=== PATIENT | male | born 1970 | race Caucasian/White ===

== ENCOUNTER 2021-07-04 07:00 | Outpatient (RCR) | payer OTHER, SELFPAY | END 2021-12-01 13:43 | disposition home or self-care (01) | LOC: HO.PTWFD 07:00 | PROVIDERS: PCP Internal Medicine; Visit Provider Orthopaedic Surgery Foot and Ankle Surgery | DX: Z98.890 Other specified postprocedural states (principal) | CPT/HCPCS: 97035; 97110; 97116; 97140; 97161; 97535 ==

== ENCOUNTER → 2023-03-04 07:59 | Outpatient (REF) | payer OTHER, SELFPAY ==
--- NOTE | ~2023-03-04 | NM_ITS ---
EXAMINATION: BILIARY TRACT IMAGING STUDY WITH [facility]CK CLINICAL INFORMATION: Right upper quadrant pain, rule out acalculous cholecystitis.. COMPARISON: No previous biliary scan is available for comparison. The report of abdominal ultrasound performed at [facility] dated 09/21/2022 is available, but the images from that study are not available for comparison.. TECHNIQUE: Serial gamma scintillation camera images were obtained over the abdomen for a total observation period of 91 minutes following the intravenous administration of 5 mCi Tc-99m Mebrofenin. FINDINGS: There is good concentration of activity in the liver by 5 minutes post injection. Biliary activity is visualized by 8 minutes. The gallbladder is well visualized by 13 minutes. Small bowel is well visualized by 45 minutes. At 61 minutes post radiopharmaceutical injection, a 30-minute infusion of 1.7 micrograms Sincalide was then begun and an additional 40 minutes of images were obtained. There is good emptying of the gallbladder. By the end of the study there is good clearance of activity from the liver and visualization of diffuse small bowel activity. The calculated gallbladder ejection fraction is 96% (normal gallbladder ejection fraction is greater than 35%). NM/NM hepatobiliary w pharm IMPRESSION: Visualization of the gallbladder is evidence of a patent cystic duct and strong evidence against the diagnosis of acute cholecystitis. The common bile duct is patent. Gallbladder emptying and ejection fraction are normal. Liver function appears normal.
== END ==
LOC: HO.NUCMED 07:59
PROVIDERS: PCP Internal Medicine; Visit Provider Internal Medicine
DX: R10.11 Right upper quadrant pain (principal)
CPT/HCPCS: 78227; A9537; J2805

== ENCOUNTER 2023-04-15 11:09 | Day surgery (SDC) | payer OTHER, SELFPAY ==
[2023-04-09 13:42] VITALS: BMI 24.4
--- NOTE | 2023-04-10 08:23 | HO.ANESPROP2 ---
Documented by User: Tameka Morales NP 04/10/23 08:23 HPI - Anesthesia Eval Consult details Narrative: 52yo M for Upper Endoscopy and Colonoscopy [facility] Past Medical History Medical History IBS (irritable bowel syndrome) Asthma GERD (gastroesophageal reflux disease) Surgical History Surgical History Hx of foot surgery Hx of nasal septoplasty Hx of knee surgery Hx of right inguinal hernia repair History of esophagogastroduodenoscopy (EGD) H/O colonoscopy Social History Advance Directives: No Advance Directives Information Provided: Yes Meds Allergies Allergy/AdvReac Type Severity Reaction Status Date / Time nut - unspecified [nut] Allergy Severe ANAPHYLAXIS Unverified 02/04/20 15:17 tomato [Tomato] Allergy Severe FRESH Unverified 02/04/20 15:17 VEGETABLES-HIVES, ITCHY THROAT aspirin [ASPIRIN] Allergy Unknown HEADACHES Unverified 02/04/20 15:17 latex [LATEX] Allergy Unknown RASH Unverified 02/04/20 15:17 Penicillins [PENICILLINS] Allergy Unknown HIVES Unverified 02/04/20 15:17 lactose [Lactose] AdvReac Intermediate LACTOSE Unverified 02/04/20 15:17 INTOLERANT FRESH FRUIT Allergy Severe HIVES Uncoded 02/04/20 15:17 ITCHY THROAT SEAFOOD Allergy Severe ANAPHYLAXIS Uncoded 02/04/20 15:17 Home Medications Medication Instructions Recorded Confirmed Last Taken Type albuterol sulfate 90 mcg/actuation 2 puff inhalation QID PRN wheezing 04/09/23 04/09/23 Unknown History aerosol inhaler (Ventolin HFA) famotidine 20 mg tablet (Pepcid) 20 mg PO BEDTIME 04/09/23 04/09/23 Unknown History fluticasone propionate 110 2 puff inhalation BID 04/09/23 04/09/23 Unknown History mcg/actuation HFA aerosol inhaler (Flovent HFA) mometasone 50 mcg/actuation nasal 1 spray intranasal DAILY 04/09/23 04/09/23 Unknown History spray Exam Height,Weight and Vital Signs: Height 6 ft 2 in Weight 86.183 kg Assessment and Plan Assessment Anesthesia Assessment: Chart Reviewed Documented by User: Nilesh Wen MD 04/15/23 11:45 PMFSH Past Medical History Medical History IBS (irritable bowel syndrome) Asthma GERD (gastroesophageal reflux disease) Family History Family history of problems with anesthesia: No Surgical History Surgical History Hx of foot surgery Hx of nasal septoplasty Hx of knee surgery Hx of right inguinal hernia repair History of esophagogastroduodenoscopy (EGD) H/O colonoscopy History of Problems with Anesthesia: No Social History Advance Directives: No Advance Directives Information Provided: Yes Meds Allergies Allergy/AdvReac Type Severity Reaction Status Date / Time nut - unspecified [nut] Allergy Severe ANAPHYLAXIS Unverified 02/04/20 15:17 tomato [Tomato] Allergy Severe FRESH Unverified 02/04/20 15:17 VEGETABLES-HIVES, ITCHY THROAT aspirin [ASPIRIN] Allergy Unknown HEADACHES Unverified 02/04/20 15:17 latex [LATEX] Allergy Unknown RASH Unverified 02/04/20 15:17 Penicillins [PENICILLINS] Allergy Unknown HIVES Unverified 02/04/20 15:17 lactose [Lactose] AdvReac Intermediate LACTOSE Unverified 02/04/20 15:17 INTOLERANT FRESH FRUIT Allergy Severe HIVES Uncoded 02/04/20 15:17 ITCHY THROAT SEAFOOD Allergy Severe ANAPHYLAXIS Uncoded 02/04/20 15:17 Home Medications Medication Instructions Recorded Confirmed Last Taken Type albuterol sulfate 90 mcg/actuation 2 puff inhalation QID PRN wheezing 04/09/23 04/09/23 Unknown History aerosol inhaler (Ventolin HFA) famotidine 20 mg tablet (Pepcid) 20 mg PO BEDTIME 04/09/23 04/09/23 Unknown History fluticasone propionate 110 2 puff inhalation BID 04/09/23 04/09/23 Unknown History mcg/actuation HFA aerosol inhaler (Flovent HFA) mometasone 50 mcg/actuation nasal 1 spray intranasal DAILY 04/09/23 04/09/23 Unknown History spray Exam Airway Mallampati Class: II TM Dist: >3cm Neck ROM: Full Loose/Missing/Broken Teeth: No Heart: [id number] Lungs: cta b/l Assessment and Plan Assessment Anesthesia Assessment: Anesthesia Plan Discussed Final Anesthetic Review Family History of Problems with Anesthesia: No History of Problems with Anesthesia: No NPO: Yes ASA Class: II Final Preanesthetic Review: No Changes in Pt Med Stat, Meds/Allgs Chart Reviewed, Consent Obtained/Reviewed and Anes Risks/Benef Reviewed Patient Risk: Intermediate Procedure Risk: Intermediate Assessment/Block/Sedation in SS: Assess/Block/Sedation-SS Anesthetic Plan Anesthetic Plan: MAC: and Agree w/ Assess. and Plan Disposition: Standard PACU
[2023-04-15 11:44] VITALS: BMI 25.0
[2023-04-15] MEDS: Lactated Ringers 1,000 ML 100 ML IVCONT (11:48)
[2023-04-15 11:57] VITALS: BP 129/92; PULSE 88; RESP 18; TEMP 36.6; O2SAT 97
[2023-04-15 13:51] VITALS: BP 120/81; PULSE 91; RESP 16; TEMP 36.1; O2SAT 97
--- NOTE | 2023-04-15 13:53 | PM.OP ---
Brief Operative Note Date of Service: 04/15/23 Pre-op diagnosis: GERD, Abdominal pain, Screening Post-op diagnosis: other (Hiatal hernia, Gastric polyps, Colon polyp) Procedure: EGD with biopsies, Colonoscopy to the cecum and TI with biopsy/removal of polyp Surgeon: Silverio Murphy MD Anesthesia: MAC Was an Post Production Assistant used for this Procedure?: No Estimated blood loss (mL): 2.0 Pathology: other (A. Descending duodenum B. Gastric antrum C. EG Junction at 39cm D. Gastric polyps E. Esophagus 20-25cm F. Colon polyp at 15cm) Condition: stable Disposition: PACU
[2023-04-15 14:08] VITALS: BP 119/80; PULSE 75; RESP 13; TEMP 36.1; O2SAT 97
--- NOTE | 2023-04-15 20:24 | OP_ITS ---
DATE OF SERVICE: 04/15/2023 SURGEON: Silverio Murphy MD INDICATIONS: The patient presents for evaluation of gastroesophageal reflux, personal history of tubular adenoma of the colon, colorectal cancer screening and abdominal pain. Full consent has been obtained from him for this, including risks of bleeding and perforation. PREOPERATIVE DIAGNOSIS: POSTOPERATIVE DIAGNOSIS: PROCEDURE PERFORMED: Esophagogastroduodenoscopy with biopsies, and colonoscopy to the cecum and terminal ileum with biopsy and removal of polyp. ESTIMATED BLOOD LOSS: COMPLICATIONS: ANESTHESIA: Monitored anesthesia care. ASSISTANTS: SPECIMENS: PREOPERATIVE DIAGNOSES: Gastroesophageal reflux, history of adenomatous polyps of the colon, colorectal, colorectal cancer screening, abdominal pain. POSTOPERATIVE DIAGNOSES: Gastroesophageal reflux, history of adenomatous polyps of the colon, colorectal cancer screening, abdominal pain, small hiatal hernia, gastric polyps, rule out celiac disease, rule out gastritis, rule out eosinophilic esophagitis, colon polyp, mild diverticulosis, internal hemorrhoids. DESCRIPTION OF PROCEDURE: The patient was placed in the left lateral decubitus position. The Olympus video gastroscope was passed in the posterior oropharynx and upper esophagus under direct vision. The scope was passed slowly to the distal esophagus. The gastroesophageal junction appeared at 39 cm. There was some very minimal irregularity consistent with reflux but no evidence of any esophagitis nor any definitive Peguero's mucosa. The scope entered into the stomach. There was a small hiatal hernia. The scope was advanced to the pylorus, and the duodenum was cannulated to the descending portion. The duodenum including the bulb appeared normal without mass or ulceration. Biopsies were obtained from the 2nd and 3rd portions of the duodenum. The scope was withdrawn back to the stomach. The gastric antrum and body appeared normal other than some mild areas of erythema but there were no erosions, ulceration, nor mass. There was good peristalsis. Biopsies were obtained from the antrum. The scope was retroflexed visualizing the proximal stomach carefully, which appeared normal, other than several hyperplastic appearing gastric polyps. There was no evidence of any mass or ulceration. The scope was straightened. Biopsies were obtained from some of the gastric polyps. The scope was withdrawn back to the esophagus. Biopsies were obtained at 39 cm at the EG junction. Proximal to this, the esophageal mucosa appeared normal. In the proximal esophagus, between 20 cm and 25 cm, there was a subtle appearance of esophageal rings, which basically almost disappeared with insufflation of air. Biopsies were obtained between 20 cm and 25 cm. The scope was then withdrawn from the patient. He was turned around for the colonoscopy. The digital rectal exam revealed no abnormalities. The Olympus video pediatric colonoscope was entered into the rectum and advanced easily to the cecum. Once in the cecum, I did identify normal-appearing cecal pouch with appendiceal orifice and a normal-appearing ileocecal valve. The terminal ileum was cannulated and appeared normal. The scope was withdrawn back in the colon. The entire cecum and ileocecal valve appeared normal. The scope was slowly withdrawn assessing all mucosal surfaces carefully. For the most part preparation was very good throughout the colon although did require some irrigation and suctioning. At 15 cm was a flat, approximately 5 mm polyp, which was biopsied and removed completely with the cold biopsy forceps. I did not visualize any other polyps, colitis, nor angiodysplasia. There were occasional diverticula noted in the sigmoid colon. In the rectum, scope was retroflexed visualizing internal hemorrhoids, but no other pathology. The rectal mucosa appeared normal. The scope was straightened and withdrawn from the patient. He tolerated both procedures well and was returned to the recovery area in stable condition. IMPRESSION: 1. Small hiatal hernia, gastroesophageal reflux. 2. Gastric polyps. 3. Rule out celiac disease. 4. Rule out eosinophilic esophagitis. 5. Rule out gastritis and Helicobacter pylori. 6. Colon polyp. 7. Mild diverticulosis. 8. Internal hemorrhoids. PLAN: The results of the biopsies will be checked. I would recommend a repeat colonoscopy in 5 years. He was advised not to use any aspirin or NSAIDs for 1 week. He was advised to continue his famotidine 20 mg twice a day as he does report that is working well for his heartburn. In regard to the right upper quadrant pain that he gets intermittently, I do not think it is gallbladder related given the negative ultrasound and normal HIDA scan with CCK. This sounds more like a musculoskeletal issue. I do not think any further evaluation of that is required from my standpoint. He was advised not to use any aspirin and NSAIDs for least a week. He does have some mucus and what he describes as a postnasal drip causing some hoarseness, and I did advise him that he can follow up with his PCP or ENT physician if need be. If things remain well, I will see me in 5 years for a followup colonoscopy, but he was advised to call sooner as needed. This was discussed with his as well. MD ANNAMARIA Ramsey/AMARILYS / [id number] MTDD
== END 2023-04-15 14:39 | disposition home or self-care (01) ==
PROVIDERS: PCP Internal Medicine; Visit Provider Internal Medicine
PROC: (CPT 45380; principal; 2023-04-15 13:00)
DX: Z12.11 Encounter for screening for malignant neoplasm of colon (principal); Z86.010 Personal history of colon polyps; K63.5 Polyp of colon; K57.30 Diverticulosis of large intestine without perforation or abscess without bleeding; K64.8 Other hemorrhoids; K58.9 Irritable bowel syndrome, unspecified; K21.9 Gastro-esophageal reflux disease without esophagitis; K31.7 Polyp of stomach and duodenum; K44.9 Diaphragmatic hernia without obstruction or gangrene; J45.909 Unspecified asthma, uncomplicated; Z79.51 Long term (current) use of inhaled steroids; Z79.899 Other long term (current) drug therapy; Z88.8 Allergy status to other drugs, medicaments and biological substances; Z88.0 Allergy status to penicillin; Z91.040 Latex allergy status; Z98.890 Other specified postprocedural states
CPT/HCPCS: 45380; 43239; 88305; 88342; J2704